=== PATIENT | male | born 1970 | race African-American/Black ===

== ENCOUNTER 2020-07-09 21:28 | Inpatient (IN) | payer MEDICAID ==
[~2020-07-09] VITALS: Ht 188 cm; Wt 81.6 kg
[2020-07-09] MEDS ORDERED: SODIUM CHLORIDE 0.9% 1,000 ML IV ONE (21:45)
[2020-07-09] MEDS ORDERED: OLANZAPINE 10 MG/VIAL IM ONE (22:00)
[2020-07-09] MEDS ORDERED: LORAZEPAM 2MG/ML CPJ IM ONE (22:00)
[2020-07-09] MEDS ORDERED: DIPHENHYDRAMINE 50MG/ML VIAL IM ONE (22:00)
[2020-07-09] MEDS ORDERED: LORAZEPAM 2MG/ML CPJ IV ONE (23:00)
[2020-07-10 00:26] LABS: HEMATOCRIT. 39.8 % (42.0-52.0); HEMOGLOBIN. 13.1 g/dL (14.0-18.0); MEAN CORPUSCULAR HEMOGLOBIN 30.1 pg (28.0-32.0); MEAN CORPUSCULAR VOLUME 91.4 fL (80.0-94.0); MEAN PLATELET VOLUME 7.3 fl (7.4-10.4); PLATELET 184 x1000/uL (130-400); RED BLOOD CELL COUNT 4.36 mill/uL (4.7-6.1); RED CELL DISTRIBUTION WIDTH 14.4 % (11.6-14.6)
[2020-07-10 00:34] LABS: CHLORIDE 112 mEq/L (98-107)
[2020-07-10 00:37] LABS: ETHANOL BLOOD < 10 mg/dL
[2020-07-10 00:58] LABS: CREATINE KINASE 5821 IU/L (39-308)
[2020-07-10] MEDS ORDERED: SODIUM CHLORIDE 0.9% 1000ML BAG (SEPSIS BOLUS) IV ONE (01:15)
[2020-07-10 01:37] LABS: CLARITY URINE CLEAR (CLEAR); COLOR URINE YELLOW (YELLOW); KETONES URINE NEGATIVE (NEGATIVE); LEUKOCYTE ESTERASE URINE NEGATIVE (NEGATIVE); NITRITE URINE NEGATIVE (NEGATIVE); OCCULT BLOOD URINE 3+ (NEGATIVE); PH URINE 5.5 (4.5-8.0); PROTEIN URINE TRACE (NEGATIVE); SPECIFIC GRAVITY URINE 1.008 (1.005-1.030); UROBILINOGEN URINE 0.2 E.U./dL (0.2-1.0)
[2020-07-10 01:58] LABS: *AMPHETAMINES SCREEN URINE NEGATIVE (NEGATIVE); *BARBITURATES SCREEN URINE NEGATIVE (NEGATIVE); *BENZODIAZEPINES SCREEN URINE NEGATIVE (NEGATIVE); *COCAINE SCREEN URINE NEGATIVE (NEGATIVE); CANNABINOID URINE SCREEN NEGATIVE (NEGATIVE); METHADONE URINE SCREEN NEGATIVE (NEGATIVE); OPIATES URINE SCREEN NEGATIVE (NEGATIVE); PHENCYCLIDINE URINE SCREEN PRESUMTIVE POSITIVE (NEGATIVE)
[2020-07-10] MEDS ORDERED: ZIPRASIDONE MESYLATE 20MG/VIAL IM ONE (02:30)
[2020-07-10] MEDS ORDERED: ONDANSETRON HCL 4MG/2ML INJ IV PRN (08:00)
[2020-07-10] MEDS ORDERED: CLONIDINE 0.1MG TABLET PO PRN (08:00)
[2020-07-10] MEDS ORDERED: LORAZEPAM 2MG/ML CPJ IV PRN (08:00)
[2020-07-10] MEDS ORDERED: GUAIFENESIN 200MG/10ML SUGAR FREE UDC PO PRN (08:00)
[2020-07-10] MEDS ORDERED: MAGNESIUM/ALUMINUM HYDROXIDE/SIMETHICONE 30ML UDC PO PRN (08:00)
[2020-07-10] MEDS ORDERED: IPRATROPIUM/ALBUTEROL 0.5-3(2.5)MG/3ML NEB NEB PRN (08:00)
[2020-07-10] MEDS ORDERED: NITROGLYCERIN 0.4MG TABLET SL SL PRN (08:00)
[2020-07-10] MEDS ORDERED: ACETAMINOPHEN 325MG TABLET PO PRN ×2 (08:00)
[2020-07-10] MEDS ORDERED: DOCUSATE SODIUM 100MG CAPSULE PO PRN (08:00)
[2020-07-10] MEDS: SODIUM CHLORIDE 0.9% 1,000 ML IV SCH ×2 (08:34→18:18)
[2020-07-10] MEDS ORDERED: ASPIRIN 325MG EC TABLET PO SCH (09:00)
[2020-07-10] MEDS ORDERED: CHOLECALCIFEROL (D3) 1000 UNIT TABLET PO SCH (09:00)
[2020-07-10] MEDS ORDERED: ZINC SULFATE 220 MG ( 50 ) CAPSULE PO SCH (09:00)
[2020-07-10] MEDS ORDERED: ENOXAPARIN 40MG/0.4ML SYR SUBCUT SCH (09:00)
[2020-07-10] MEDS: FAMOTIDINE 20MG TABLET PO SCH ×2 (09:05→21:38)
[2020-07-10] MEDS: ASCORBIC ACID 500 MG TABLET PO SCH ×2 (09:05→21:38)
[2020-07-10 09:09] LABS: PLATELET ESTIMATE NORMAL
[2020-07-10 11:30] VITALS: BP 162/90
[2020-07-10 12:00] VITALS: BP 162/90
[2020-07-10 12:03] LABS: FOLIC ACID (FOLATE) SERUM >20 ng/mL ng/mL (>5.38)
[2020-07-10 12:14] LABS: VITAMIN B12 SERUM 231 pg/mL (211-911)
[2020-07-10] MEDS: DILTIAZEM HCL 60MG TABLET PO SCH ×2 (12:24→18:20)
[2020-07-10 16:00] VITALS: BP 137/92
[2020-07-10 16:21] LABS: CREATINE KINASE MB FRACTION 47.4 ng/mL (0.5-3.6)
[2020-07-10 20:00] VITALS: BP 133/98
[2020-07-10] MEDS ORDERED: ZOLPIDEM TARTRATE 5MG TABLET PO PRN (21:00)
[2020-07-10] MEDS: KETOROLAC 15MG/ML VIAL IV PRN (21:45)
[2020-07-10 23:22] LABS: CREATINE KINASE MB FRACTION 26.5 ng/mL (0.5-3.6)
[2020-07-11] VITALS: BP_SYST 127; BP_SYST 139; BP_DIAS 73; BP_DIAS 92
[2020-07-11] MEDS: DILTIAZEM HCL 60MG TABLET PO SCH ×3 (01:35→05:16)
[2020-07-11 04:02] VITALS: BP 127/73
[2020-07-11] MEDS: KETOROLAC 15MG/ML VIAL IV PRN (04:02)
[2020-07-11 05:49] LABS: CHLORIDE 112 mEq/L (98-107)
[2020-07-11 05:59] LABS: PHOSPHORUS 3.2 mg/dL (2.5-4.9)
[2020-07-11 06:08] LABS: EOSINOPHILS % 0.7 % (0.0-5.0); HEMATOCRIT. 37.7 % (42.0-52.0); HEMOGLOBIN. 12.7 g/dL (14.0-18.0); LYMPHOCYTES % 24.9 % (20.0-50.0); MEAN CORPUSCULAR HEMOGLOBIN 30.9 pg (28.0-32.0); MEAN CORPUSCULAR VOLUME 91.5 fL (80.0-94.0); MEAN PLATELET VOLUME 7.9 fl (7.4-10.4); MONOCYTES % 13.1 % (2.0-8.0); NEUTROPHILS % 60.3 % (40.0-76.0); PLATELET 169 x1000/uL (130-400); RED BLOOD CELL COUNT 4.12 mill/uL (4.7-6.1); RED CELL DISTRIBUTION WIDTH 14.7 % (11.6-14.6)
[2020-07-11] MEDS: SODIUM CHLORIDE 0.9% 1,000 ML IV SCH (07:02)
== END 2020-07-11 09:25 | disposition left against medical advice (07) | DRG 812 ==
LOC: ER 21:28 → EDBD 21:28 → MICUSO 07-10 04:07 → 6EST 07-10 09:56 → ENRESERV 07-10 09:56
PROVIDERS: ADMIT Internal Medicine; ATTEND Internal Medicine
DX: T40.991A Poisoning by other psychodysleptics [hallucinogens], accidental (unintentional), initial encounter (principal); G92 Toxic encephalopathy; M62.82 Rhabdomyolysis; F16.129 Hallucinogen abuse with intoxication, unspecified; D63.8 Anemia in other chronic diseases classified elsewhere; R74.01 Elevation of levels of liver transaminase levels; Y92.89 Other specified places as the place of occurrence of the external cause; Z78.1 Physical restraint status; Z53.29 Procedure and treatment not carried out because of patient's decision for other reasons
CPT/HCPCS: 36415; 80053; 80061; 80305; 80307; 80320; 80329; 81003; 82550; 82553; 82607; 82746; 83036; 83540; 83550; 83735; 84100; 84484; 85025; 93005; 93970; 94640; 99285; J1200; J1650; J1885; J2060; J3486; J3490; J7030; G0480